=== PATIENT | female | born 1995 | race Two or more races ===

== ENCOUNTER 2022-08-03 18:41 | Emergency (ER) | payer OTHER ==
[~2022-08-03] VITALS: Ht 160 cm; Wt 82.3 kg
[2022-08-03 19:25] VITALS: BP 129/81
[2022-08-04] MEDS ORDERED: IBUP800T26 PO (00:13)
[2022-08-04] MEDS ORDERED: CYCL-837 PO (00:13)
[2022-08-04] MEDS ORDERED: KETOROLAC TROMETH 30 MG/ML 1ML VIAL IM ONE (00:15)
[2022-08-04] MEDS ORDERED: methylPREDNISolone SOD SUCC 125 MG/2 ML VL IM ONE (00:15)
== END 2022-08-04 02:17 | disposition home or self-care (01) ==
LOC: ER 18:41
DX: S20.219A Contusion of unspecified front wall of thorax, initial encounter (principal); V49.9XXA Car occupant (driver) (passenger) injured in unspecified traffic accident, initial encounter; Y93.89 Activity, other specified; Y92.89 Other specified places as the place of occurrence of the external cause; Y99.8 Other external cause status
CPT/HCPCS: 71046; 96372; 99284; J1885; J2930